=== PATIENT | female | born 1975 | race Caucasian/White ===

== ENCOUNTER 2020-11-25 07:25 | Emergency (ER) | payer SELFPAY ==
[2020-11-25] MEDS ORDERED: Acetaminophen/HYDROcodone 325-10 MG Tab PO ONE (07:45)
--- NOTE | 2020-11-25 08:09 | EDM.PDOC ---
ED HPI GENERAL MEDICAL PROBLEM - General Chief Complaint: Upper Extremity Injury/Pain Stated Complaint: FALL- PROSSIBLE BROKEN RIGHT ARM Time Seen by Provider: 11/25/20 07:45 - History of Present Illness INITIAL COMMENTS - FREE TEXT/NARRATIVE: CHIEF COMPLAINT(S): Arm pain HISTORY OF PRESENT ILLNESS: This is a 45-year-old woman without any significant past medical history who comes to the emergency department with a chief com plaint of arm pain. The patient states that last night she fell down approximately 4 steps landing on her right hand. She states that she is experiencing pain in her right wrist which she rates as 10 out of 10. She denies any radiation of this pain. She denies any numbness or tingling. She states that she has not yet taken any pain medication. There are no relieving factors. She states the pain is exacerbated by movement. She states that she was drinking and had a small amount of methamphetamine last night. In addition to this she states that she has some left hip pain. Similar description as above. She states that she is able to ambulate without any difficulty. She denies any head injury or loss of consciousness. She denies any use of oral anticoagulation. She denies any chest pain, shortness of breath, abdominal pain, nausea or vomiting. She denies any other symptoms. REVIEW OF SYSTEMS: Constitutional: Denies fever, chills. Eyes: Denies eye pain Ears, Nose, Mouth, & Throat: Denies earache Cardiovascular: Denies chest pain Respiratory: Denies shortness of breath Gastrointestinal: Denies Nausea, vomiting, diarrhea, hematochezia. Genitourinary: Denies hematuria Skin:Denies a rash MSK: Positive for left wrist pain and left hip pain Neurological: Denies blurred vision, numbness, tingling, weakness Psychiatric: Denies depression PAST MEDICAL HISTORY: As per history of present illness and as reviewed below otherwise noncontributory. SURGICAL HISTORY: As per history of present illness and as reviewed below otherwise noncontributory. LMP: 2 weeks ago SOCIAL HISTORY: As per history of present illness and as reviewed below otherwise noncontributory. FAMILY HISTORY: As per history of present illness and as reviewed below otherwise noncontributory. EXAMINATION OF ORGAN SYSTEMS/BODY AREAS: Constitutional: Blood pressure is 132/94, heart rate 103, respiratory rate 20 with an oxygen saturation 99% on room air. Temperature 36.3 General: Young woman who does not appear to be in acute distress. Psychiatric: Appropriate mood and affect. Eyes: No scleral icterus or conjunctival erythema ENMT: Moist mucous membranes. No pharyngeal erythema Cardiovascular: Regular, rate, and rhythm. No gallops, murmurs, or rubs. Bilateral upper extremity pulses symmetric and intact. No peripheral edema. No JVD. Capillary refill less than 2 seconds distally. Respiratory: Lungs clear to auscultation bilaterally. No wheezes, rales, or rhonchi. Gastrointestinal: Soft, non-tender, non-distended. Normoactive bowel sounds Genitourinary: No suprapubic tenderness Musculoskeletal: Normal range of motion. Left paralumbar muscle tenderness. No midline cervical, thoracic, or lumbar tenderness. The patient does have a deformity of her left wrist. The patient can wiggle her fingers on her right hand. Skin: No lesions or abrasions. Neurological: Alert, GCS 15 distal sensation is intact MEDICAL DECISION MAKING AND COURSE IN THE ED WITH INTERPRETATION/REVIEW OF DIAGNOSTIC STUDIES: This is a 45-year-old and without any significant past medical history who comes to the emergency department with wrist pain and left hip pain status post fall after use of alcohol and methamphetamine. At this time we will provide the patient with Spring for pain relief. We will obtain x- rays of the hand on the right side, wrist of the right side, elbow of the right side. We also obtain a pelvic x-ray. I do not believe any other labs or imaging are indicated. The radiological images were viewed by myself along with reading the report from the radiologist. Pelvic x-ray does not reveal any fracture or dislocation. Right wrist x-ray reveals an acute angulated fracture deformity involving the metaphysis of the distal radius at the wrist. Right hand x-ray does not reveal any acute fracture of the right hand. Left elbow x-ray does not reveal any fracture of the left elbow. There is needlelike radiopaque foreign bodies. Hematoma Block Procedure Note Indication: Anesthesia for right distal radius fracture Consent: Verbal Procedure: Patients right wrist was prepped in a sterile fashion with betadine. The side of the fracture was identified by landmark palpation. 18 gauge needle was inserted directly over the fracture and advanced. Blood was aspirated. 5 cc of 0.5% Bupivicaine was injected. Needle was removed and pressure was provided with gauze. Sterile dressing was applied. Complications: None Noted Fracture Reduction Procedure Note Performed by: Myself Consent: Verbal consent obtained. Risks and benefits: risks, benefits and alternatives were discussed Consent given by: Patient Patient understanding: Patient states understanding of the procedure being performed Patient consent: Patient understanding of the procedure matches consent given Patient identity confirmed: verbally with patient and arm band Time out: Immediately prior to procedure a "time out" was called to verify the correct patient, procedure, equipment, mining support worker and site/side marked as required. Location details: Right wrist Reduction Procedure: axial pull and closed manipulation of right distal radius fracture Results: Post reduction alignment improved Complication: Tolerated well without complication. <2sec PROTOTYPER. Tendons intact. Post-reduction Examination: Distal sensation of all fingertips intact, capillary refill less than 2 seconds, patient can do full range of motion of the distal fingers of the right hand. Post Reduction Imaging: The radiological images were viewed by myself along with reading the report from the radiologist. Right wrist x-ray reveals anatomic alignment of the undisplaced fracture of the distal radius. After reduction I did discuss with patient that I be providing her with Spring for pain relief. I discussed that she should keep the extremity elevated and follow-up with orthopedics within 3 to 5 days. I discussed strict return precautions. She was amenable to discharge at this time and had no further questions. DISPOSITION: The patient was discharged home in stable condition. The patient will follow up with orthopedics within 3 to 5 days CONDITION: Fair PROCEDURES: Right wrist hematoma block, distal radius fracture reduction FINAL IMPRESSION(S)/DIAGNOSES: 1. Acute comminuted displaced distal radius fracture status post reduction DME: Right shoulder sling Indication: Immobilization of distal radius fracture Benefit: Immobilization Duration: Until follow-up with orthopedics Ryan Angelo M.D. right arm Pain Score (Numeric/FACES): 10 - Related Data Allergies Allergy/AdvReac Type Severity Reaction Status Date / Time No Known Allergies Allergy Verified 11/25/20 07:30 Home Meds: Home Meds Acetaminophen/HYDROcodone [Spring 325-5 MG] 1 tab PO Q6H PRN #16 tablet 11/25/20 [Rx] Past Medical History - Past Surgical History HEENT Surgical History: Reports: Tonsillectomy Social & Family History - Family History Family Medical History: No Pertinent Family History - Tobacco Use Packs/Tins Daily: 0.5 - Caffeine Use Caffeine Use: Reports: None - Recreational Drug Use Recreational Drug Use: Yes Recreational Drug Type: Reports: Methamphetamine Recreational Drug Use Frequency: Daily Review of Systems - Review of Systems Review Of Systems: See Below ED EXAM, GENERAL - Physical Exam Exam: See Below Course - Vital Signs Last Recorded V/S: Last Vital Signs Temp 36.3 C 11/25/20 07:28 Pulse 103 H 11/25/20 07:28 Resp 20 11/25/20 07:28 BP 132/94 H 11/25/20 07:28 Pulse Ox 99 11/25/20 07:28 - Orders/Labs/Meds Meds: Medications Discontinued Medications Generic Name Dose Route Start Last Admin Trade Name Freq PRN Reason Stop Dose Admin Hydrocodone Bitart/Acetaminophen 1 tab 11/25/20 07:45 11/25/20 08:03 Acetaminophen/Hydrocodone 325-10 Mg Tab PO 11/25/20 07:46 1 tab ONETIME ONE Administration Bupivacaine HCl 10 ml 11/25/20 08:54 11/25/20 09:02 Bupivacaine 0.5% 10 Ml Sdv INJECT 11/25/20 08:55 10 ml ONETIME ONE Administration Departure - Departure Time of Disposition: 10:51 Disposition: Home, Self-Care 01 Condition: Fair Clinical Impression: Fracture of radius Qualifiers: Encounter type: initial encounter Radius location: distal Fracture type: closed Fracture morphology: unspecified fracture morphology Laterality: right Qualified Code(s): S52.501A - Unspecified fracture of the lower end of right radius, initial encounter for closed fracture - Discharge Information *PRESCRIPTION DRUG MONITORING PROGRAM REVIEWED*: No *COPY OF PRESCRIPTION DRUG MONITORING REPORT IN PATIENT VINI: No Prescriptions: Acetaminophen/HYDROcodone [Spring 325-5 MG] 1 tab PO Q6H PRN #16 tablet PRN Reason: Breakthrough Pain Instructions: Radial Fracture, Cast or Splint Care, Adult, [id number], Scaphoid Fracture Referrals: PCP,None [Primary Care Provider] - Forms: ED Department Discharge Additional Instructions: Your evaluated today on an emergent basis. At this time you do have a fracture of your right wrist. We did place a splint. There could also be a scaphoid fracture and the splint is used for this also. I do recommend that you use Spring every 6 hours for pain and use ibuprofen 400 to 600 mg additionally until you follow-up with orthopedics. Please follow-up with Ortho within the next 3 to 5 days. Return for any new or worsening symptoms such as worsening pain, weakness of your hand or cold hands. [facility] [address], [address] [place] [address] The patient is informed of any results of their evaluation and diagnostic workup and all questions are answered. They are given discharge instructions and return precautions. The patient is stable for discharge. The patient states they understand and agree with the plan and that they will return if their symptoms get worse or if they have any new concerns. The following information is given to patients seen in the emergency department who are being discharged to home. This information is to outline your options for follow-up care. We provide all patients seen in our emergency department with a follow-up referral. The need for follow-up, as well as the timing and circumstances, are variable depending upon the specifics of your emergency department visit. If you don't have a primary care physician on staff, we will provide you with a referral. We always advise you to contact your personal physician following an emergency department visit to inform them of the circumstance of the visit and for follow-up with them and/or the need for any referrals to a consulting specialist. The emergency department will also refer you to a specialist when appropriate. This referral assures that you have the opportunity for follow-up care with a specialist. All of these measure are taken in an effort to provide you with optimal care, which includes your follow-up. Under all circumstances we always encourage you to contact your private physician who remains a resource for coordinating your care. When calling for follow-up care, please make the office aware that this follow-up is from your recent emergency room visit. If for any reason you are refused follow-up, please contact the [facility] Emergency Department at and asked to speak to the emergency department charge nurse. Sepsis Event Note (ED) - Evaluation Sepsis Screening Result: No Definite Risk
--- NOTE | 2020-11-25 08:40 | CR ---
INDICATION: Left elbow pain after fall. TECHNIQUE: Three view. FINDINGS: No acute fracture is seen of the left elbow. The joint spaces and fat pads appear to be preserved. There is a transversely oriented linear radiodensity and a smaller linear radiodensity in the soft tissues of the left elbow. These are suspicious for radiopaque foreign bodies. IMPRESSION: No acute fracture is seen of the left elbow. Needle like radiopaque foreign bodies are identified at the level of the left elbow. Dictated by Pardeep Herrera MD @ 11/25/2020 8:39:[address] Pardeep Herrera @ Nov 25 2020 8:39AM
--- NOTE | 2020-11-25 08:42 | CR ---
INDICATION: Right wrist pain and injury. TECHNIQUE: Three view. FINDINGS: Displaced volar angulated and mildly comminuted fracture deformity is identified of the metaphysis of the distal right radius at the wrist. No intra-articular involvement is seen. Small radiodensity off the ulnar styloid is noted which appears corticated. No other fracture is seen. IMPRESSION: Acute angulated fracture deformity involving the metaphysis of the distal right radius is identified at the wrist. Dictated by Pardeep Herrera MD @ 11/25/2020 8:41:[address] Pardeep Herrera @ Nov 25 2020 8:41AM
--- NOTE | 2020-11-25 08:44 | CR ---
INDICATION: Left pelvic pain after fall. TECHNIQUE: Single view. FINDINGS: No acute pelvic fracture is seen. The bilateral hip joints appear to be preserved. Sclerosis along the symphysis is identified which is likely chronic. IMPRESSION: No visualized pelvic fracture is seen. Dictated by Pardeep Herrera MD @ 11/25/2020 8:42:[address] Pardeep Herrera @ Nov 25 2020 8:42AM
[2020-11-25] MEDS ORDERED: Bupivacaine 0.5% 10 ML SDV INJECT ONE (08:54)
--- NOTE | 2020-11-25 09:03 | CR ---
INDICATION: Right hand pain after fall. TECHNIQUE: Three view. FINDINGS: Acute angulated fracture deformity involving the metaphysis of the distal right radius is identified at the wrist. The remaining right hand is intact. No other fracture is seen of the right hand. Mild degenerative change base of the right 1st metacarpal is noted. IMPRESSION: Acute angulated distal right radial fracture is identified at the wrist. No other fracture is seen of the right hand. Dictated by Pardeep Herrera MD @ 11/25/2020 9:01:[address] Pardeep Herrera @ Nov 25 2020 9:01AM
--- NOTE | 2020-11-25 10:39 | CR ---
INDICATION: Fracture right wrist postreduction. COMPARISON: Radiographic examination of the right wrist November 25, 2020 at 8 a.m. Technique: Two-view study right wrist through an overlying plaster cast. FINDINGS: A nondisplaced fracture distal radius without involvement of the articular surface. No angulation. IMPRESSION: Anatomic alignment undisplaced fracture distal radius. Dictated by Nader Cedeno MD @ 11/25/2020 10:37:[address] Nader Cedeno @ Nov 25 2020 10:37AM
== END 2020-11-25 11:09 | disposition home or self-care (01) ==
LOC: MW.ED 07:25
DX: S52.501A Unspecified fracture of the lower end of right radius, initial encounter for closed fracture (principal); Z72.0 Tobacco use; W10.9XXA Fall (on) (from) unspecified stairs and steps, initial encounter
CPT/HCPCS: 29105; 72170; 72170-26; 73080-26-LT; 73080-LT; 73110-26-RT; 73110-RT; 73130-26-RT; 73130-RT; 99283-25; A9270-GY; J3490